=== PATIENT | female | born 1945 ===

== ENCOUNTER 2021-09-19 06:43 | Day surgery (SDC) | payer OTHER ==
[2021-09-19] MEDS ORDERED: MACROBID 100 M100 MG PO (09:20)
[2021-09-19] MEDS ORDERED: ACETAMINOPHEN-1 EAC2 PO (09:21)
== END 2021-09-19 12:05 | disposition home or self-care (01) ==
LOC: CIR.AMB 06:43
PROVIDERS: ATTEND Obstetrics & Gynecology Gynecology
DX: N81.11 Cystocele, midline (principal); N81.6 Rectocele; N81.5 Vaginal enterocele; N81.83 Incompetence or weakening of rectovaginal tissue; Z20.822 Contact with and (suspected) exposure to COVID-19; Z88.6 Allergy status to analgesic agent; Z91.013 Allergy to seafood